=== PATIENT | female | born 1970 | race Caucasian/White ===

== ENCOUNTER 2016-07-10 16:33 | Emergency (ER) | payer BC, OTHER ==
[~2016-07-10] VITALS: Wt 70.0 kg
[~2016-07-10 16:33] MED LIST: AMO500 PO; ATEN-51 PO; CEPH-443 PO; CEPH500C PO; CIPR500T4 PO; DEXL60CA2 PO; FAMO40TA52 PO; MAG355OR15 PO; PHEN-538 PO; PRED20TA PO; SUCR1TAB56 PO
[2016-07-10] MEDS ORDERED: FAMOTIDINE 20 MG TAB PO STA (18:36)
[2016-07-10] MEDS ORDERED: LIDOCAINE/MYLANTA 40 ML BTL PO STA (18:36)
[2016-07-10] MEDS ORDERED: SOD CHLORIDE 0.9% 1,000 ML IV STA (18:36)
[2016-07-10] MEDS ORDERED: ONDANSETRON 4 MG INJ IV STA (18:36)
--- NOTE | 2016-07-10 18:52 | ERD ---
ER Documentation Chief Complaint Date/Time DATE: 07/10/16 TIME: 18:50 Chief Complaint EPIGASTRIC/LOWER ABD PAIN RADIATES TO LEFT LOWER BACK W/ NAUSEA X3DAYS HPI Patient is a 45-year-old female here with who presents to the ED with generalized abdominal pain 1 week. She states in the last 2 days the pain has gotten worse and is primary located on the left side of her abdomen. She complains of nausea with no vomiting. Denies diarrhea. States that her last bowel movement was today. Denies a history of constipation. She does have a history of acid reflux and takes "antiacid" every day. She also states that she has pain in her lower back. Denies headache or dizziness. Denies fever or chills. Denies chest pain, cough, shortness of breath or difficulty breathing. ROS All systems reviewed and are negative except as per history of present illness. Medications Home Meds Active Scripts Famotidine* (Pepcid*) 20 Mg Tablet, 20 MG PO BID for 14 Days, TAB Prov:SUREKHA SCRUGGS PA-C 07/10/16 Ondansetron Hcl* (Zofran*) 4 Mg Tablet, 4 MG PO Q6H for NAUSEA AND/OR VOMITING, #30 TAB Prov:SUREKHA SCRUGGS PA-C 07/10/16 Cephalexin* (Cephalexin*) 500 Mg Capsule, 500 MG PO Q6, #28 CAP Prov:SARAI DIAZ PA-C 06/25/15 Atenolol* (Atenolol*) 25 Mg Tablet, 25 MG PO DAILY, #30 TAB Prov:SARAI DIAZ PA-C 06/25/15 Prednisone* (Prednisone*) 20 Mg Tab, 40 MG PO DAILY for 4 Days, TAB Prov:SARAI DIAZ PA-C 06/25/15 Famotidine* (Famotidine*) 40 Mg Tablet, 40 MG PO BID, #60 TAB Prov:MENG SORIA PA-C 02/10/15 Cephalexin* (Keflex*) 500 Mg Capsule, 500 MG PO BID for 5 Days, CAP Prov:MENG SORIA PA-C 02/10/15 Phenazopyridine Hcl* (Pyridium*) 200 Mg Tab, 200 MG PO TID for DY, #6 TAB Prov:HILARIO PRESLEY NP 10/11/14 Ciprofloxacin Hcl* (Ciprofloxacin Hcl*) 500 Mg Tablet, 500 MG PO BID for 7 Days , TAB Prov:HILARIO PRESLEY FRAMEMAN 10/11/14 Reported Medications Mag Hydrox/Al Hydrox/Simeth (Maalox Ms Liquid) 360 Ml Oral.susp, 30 ML PO Q6 08/05/14 Dexlansoprazole (Dexilant) 60 Mg Azael.mp, 60 MG PO DAILY, CAP 08/05/14 Sucralfate* (Carafate*) 1 Gm Tab, 1 GM PO Q6, TAB 08/05/14 Amoxicillin* (Amoxicillin*) 500 Mg Cap, 500 MG PO Q8, CAP 08/05/14 Allergies Allergies: Coded Allergies: No Known Allergy (Unverified , 06/07/14) PMhx/Soc Medical and Surgical Hx: pt denies Surgical Hx History of Surgery: No Anesthesia Reaction: No Hx Neurological Disorder: No Hx Respiratory Disorders: No Hx Cardiac Disorders: No Hx Psychiatric Problems: No Hx Miscellaneous Medical Probl: Yes (Thyroid, GERD) Hx Alcohol Use: No Hx Substance Use: No Hx Tobacco Use: No Smoking Status: Never smoker FmHx Family History: No coronary disease, No diabetes, No other Physical Exam Vitals Vital Signs Date Time Temp Pulse Resp B/P Pulse Ox O2 Delivery O2 Flow Rate FiO2 07/10/16 16:37 98.8 111 18 134/64 98 Physical Exam GENERAL: Well-developed, well-nourished female. Appears in no acute distress. HEAD: Normocephalic, atraumatic. EYES: Pupils are equally reactive bilaterally. EOMs grossly intact. No conjunctival erythema. ENT: Moist mucous membranes. No uvula deviation. No kissing tonsils. No exudates. NECK: Supple. No lymphadenopathy or thyromegaly. No meningismus. negative kernig. negative brudinski. LUNG: Clear to auscultation bilaterally. No rhonchi, wheezing, rales or coarse breath sounds. HEART: Regular rate and rhythm. No murmurs, rubs or gallops. ABDOMEN: No scars, ecchymosis or rashes noted. Soft, and nondistended. Positive bowel sounds in all four quadrants. No rebound tenderness, no guarding. (-) McBurneys point tenderness. No CVA tenderness. Slight tenderness in the left side of her abdomen. BACK: No midline tenderness. Extremities: Equal pulses bilaterally. No peripheral clubbing, cyanosis or edema. No unilateral leg swelling. NEUROLOGIC: Alert and oriented. Moving all four extremities. 5/5 strength in all extremities. Normal speech. Steady gait. SKIN: Normal color. Warm and dry. No rashes or lesions. Capillary refill < 2 seconds Result Diagram: 07/10/16189907/10/161899 Results 24 hrs Laboratory Tests Test 07/10/16 19:00 White Blood Count 11.310^3/ul Red Blood Count 4.7510^6/ul Hemoglobin 12.9g/dl Hematocrit 40.6% Mean Corpuscular Volume 85.5fl Mean Corpuscular Hemoglobin 27.2pg Mean Corpuscular Hemoglobin Concent 31.8g/dl Red Cell Distribution Width 12.9% Platelet Count 48932^3/UL Mean Platelet Volume 10.7fl Neutrophils % 67.0% Lymphocytes % 21.6% Monocytes % 8.7% Eosinophils % 1.9% Basophils % 0.4% Nucleated Red Blood Cells % 0.0/100WBC Neutrophils # 7.610^3/ul Lymphocytes # 2.510^3/ul Monocytes # 1.010^3/ul Eosinophils # 0.210^3/ul Basophils # 0.110^3/ul Nucleated Red Blood Cells # 0.010^3/ul Urine Color LT. YELLOW Urine Clarity SLIGHTLY CLOUDY Urine pH 5.5 Urine Specific [place] 1.020 Urine Ketones NEGATIVE Urine Nitrite NEGATIVE Urine Bilirubin NEGATIVE Urine Urobilinogen 0.2 E.U./dL Urine Leukocyte Esterase TRACE Urine Microscopic RBC NONE SEEN/HPF Urine Microscopic WBC 0-2/HPF Urine Squamous Epithelial Cells MANY Urine Bacteria FEW Urine Yeast MODERATE Urine Hemoglobin NEGATIVE Urine Glucose NEGATIVE% Urine Total Protein NEGATIVE Sodium Level 137mmol/L Potassium Level 4.0mmol/L Chloride Level 104mmol/L Carbon Dioxide Level 27mmol/L Anion Gap 10 Blood Urea Nitrogen 12mg/dl Creatinine 0.73mg/dl Glucose Level 82mg/dl Calcium Level 9.3mg/dl Total Bilirubin 0.2mg/dl Direct Bilirubin 0.00mg/dl Indirect Bilirubin 0.2mg/dl Aspartate Amino Transf (AST/SGOT) 25IU/L Alanine Aminotransferase (ALT/SGPT) 23IU/L Alkaline Phosphatase 102IU/L Total Protein 7.7g/dl Albumin 4.1g/dl Globulin 3.60g/dl Albumin/Globulin Ratio 1.13 Lipase 152U/L Current Medications Medications (Trade) Dose Ordered Sig/Yuliana Route PRN Reason Start Time Stop Time Status Last Admin Dose Admin Sodium Chloride (NS) 1,000 ml @ 1,000 mls/hr Q1H STAT IV 07/10/16 18:36 07/10/16 19:35 DC 07/10/16 19:07 Ondansetron HCl (Zofran Inj) 4 mg ONCE STAT IV 07/10/16 18:36 07/10/16 18:39 DC 07/10/16 19:06 Famotidine (Pepcid) 20 mg ONCE STAT PO 07/10/16 18:36 07/10/16 18:39 DC 07/10/16 19:06 Miscellaneous Medication (Gi Cocktail (2)) 40 ml ONCE STAT PO 07/10/16 18:36 07/10/16 18:39 DC 07/10/16 19:06 Procedures/MDM ER COURSE: I kept the patient and/or family informed of laboratory and diagnostic imaging results throughout the emergency room course. EKG, MONITORS, & DIAGNOSTIC IMAGING: [place] [id number] Radiology Main Line: [phone] DIAGNOSTIC IMAGING REPORT Patient: EFREM COLEMAN : 1970 Age: 45 Sex: F MR #: [id number] DOS: 07/10/16 1836 Ordering MD: SUREKHA SCRUGGS PA-C Location: [facility] Room/Bed: PROCEDURE: CT abdomen and pelvis without IV contrast. CLINICAL INDICATION: Abdominal pain TECHNIQUE: CT scan of the abdomen and pelvis without contrast was performed on the [employer] volumetric [address] scanner. The patient was scanned without intravenous contrast. Coronal and sagittal reformatted images were obtained from the axial source images. The CTDI vol is 10.03 mGy and the DLP is 551.54 mGy-cm. COMPARISON: 10/10/2014 FINDINGS: CT abdomen: The lung bases are clear. The heart size is not enlarged and is without pericardial thickening or effusion. The liver is normal in size and density and is without focal mass or intrahepatic biliary dilatation. The spleen is normal in size and homogeneous in density. The stomach is grossly unremarkable. The pancreas as visualized is normal. The gallbladder and biliary tree are unremarkable and there is no evidence for common bile duct dilatation. The adrenal glands are symmetric and normal. The kidneys are symmetrically unremarkable as well. No renal calculus or obstructive uropathy or mass lesion is seen. The aorta is of normal in caliber. There is no retroperitoneal lymphadenopathy. The blake hepatis region is clear. The large bowel is stool- filled. The small and large bowel and mesentery, as visualized, are otherwise unremarkable. The normal appendix is identified. CT pelvis: The pelvic organs are normal. The pelvic sidewalls and inguinal regions are clear. No pelvic mass, lymphadenopathy, or free fluid is seen. No acute inflammation is seen. The urinary bladder is within normal limits. The surrounding osseous structures are unremarkable. No osteolytic or osteoblastic lesion is detected. IMPRESSION: 1. No acute pathology in the abdomen and pelvis. 2. Stool filled large bowel. RPTAT: HPNM Physician Mark Date Time Electronically viewed and signed by Physician Mark on 07/10/2016 19 :52 / CC: SUREKHA SCRUGGS PA-C MEDICATIONS: GI cocktail, Zofran, IV fluids. Tolerated well with no adverse reaction. Stated improvement in symptoms. LAB INTERPRETATION: CBC showed no evidence of systemic infection or severe anemia. CMP showed no evidence of electrolyte abnormalities, severe acidosis, alkalosis, renal failure , or liver disease. Lipase showed no evidence of acute pancreatitis. UA showed no evidence of leukocytes, nitrites or hematuria. Urine test was negative. MEDICAL DECISION MAKING: This is a 5-year-old female who presents with abdominal pain 1 week. Vital signs were reviewed. Patient is afebrile. Patient is not hypoxic. Patient is not toxic or ill-appearing. Patient likely has abdominal pain of unknown etiology, patient's CAT scan did show mild constipation. Low suspicion for ACS , AAA, perforated ulcer, bowel obstruction, cholecystitis, choledocholithiasis, cholangitis, pancreatitis, hepatic abscess, appendicitis, diverticulitis, gastroenteritis, hepatitis, peptic ulcer disease, HELLP syndrome. I reexamined patient after administration of fluids and medication, she stated improvement in symptoms. Patient was smiling in the examination room and felt much better and was ready to go home. Her slightly elevated pulse of 111 is likely related to stress reaction. Her pulse decreased to 90 after reexamination and administration of fluids. I have low suspicion for cardiac emergency. Low suspicion for ACS, PE, AAA, dissection, DVT DISCHARGE: At this time, patient is stable for discharge and outpatient management with no new complaints during the ER course. Patient was sent home with [facility] Dc and a copy of her laboratory studies and imaging report. Advised patient to follow-up with her primary care this week.. Patient will be discharged home with instructions to recheck for new or worsening symptoms such as fever, nausea , weakness, LOC and to follow up with primary care in the next 1-2 days. Patient was advised to return to the ER for any new or worsening symptoms. Plan was discussed and patient and/or family understands and agrees. Home instructions were given. SUREKHA SCRUGGS PA-C Jul 10, 2016 18:52
[2016-07-10 19:22] LABS: ADD SCAN DIFF NO
[2016-07-10 19:25] LABS: BASOPHIL # 0.1 10^3/ul (0.0-0.1); BASOPHILS % 0.4 % (0.0-2.0); EOSINOPHILS # 0.2 10^3/ul (0.0-0.5); EOSINOPHILS % 1.9 % (0.0-7.0); HEMATOCRIT 40.6 % (37.0-47.0); HEMOGLOBIN 12.9 g/dl (12.0-16.0); LYMPHOCYTES # 2.5 10^3/ul (0.8-2.9); LYMPHOCYTES % 21.6 % (15.0-51.0); MEAN CORPUSCULAR HEMOGLOBIN 27.2 pg (29.0-33.0); MEAN CORPUSCULAR HGB CONC 31.8 g/dl (32.0-37.0); MEAN CORPUSCULAR VOLUME 85.5 fl (82.0-101.0); MEAN PLATELET VOLUME 10.7 fl (7.4-10.4); MONOCYTES % 8.7 % (0.0-11.0); NEUTROPHIL # 7.6 10^3/ul (1.6-7.5); PLATELET COUNT 307 10^3/UL (140-415); RED BLOOD COUNT 4.75 10^6/ul (4.20-5.40); RED CELL DISTRIBUTION WIDTH 12.9 % (11.5-14.5); WHITE BLOOD COUNT 11.3 10^3/ul (4.8-10.8)
[2016-07-10 19:29] LABS: ADD UMIC YES; URINE BILIRUBIN (Dip) NEGATIVE (NEGATIVE); URINE BLOOD (Dip) NEGATIVE (NEGATIVE); URINE COLOR LT. YELLOW (YELLOW); URINE GLUCOSE (Dip) NEGATIVE (NEGATIVE); URINE KETONES (Dip) NEGATIVE (NEGATIVE); URINE LEUKOCYTE ESTERASE (Dip) TRACE (NEGATIVE); URINE NITRITE (Dip) NEGATIVE (NEGATIVE); URINE TOTAL PROTEIN (Dip) NEGATIVE (NEGATIVE); URINE UROBILINOGEN (Dip) 0.2 E.U./dL (0.1-1.0)
[2016-07-10 19:46] LABS: URINE RBCS NONE SEEN /HPF (0)
[2016-07-10 19:47] LABS: BACTERIA,URINE FEW; SQUAMOUS EPITHELIAL CELL,UR MANY
--- NOTE | 2016-07-10 19:52 | RADRPT ---
PROCEDURE: CT abdomen and pelvis without IV contrast. CLINICAL INDICATION: Abdominal pain TECHNIQUE: CT scan of the abdomen and pelvis without contrast was performed on the [employer] volumetric [address] scanner. The patient was scanned without intravenous contrast. Coronal and sagittal refo rmatted images were obtained from the axial source images. The CTDI vol is 10.03 mGy and the DLP is 551.54 mGy-cm. COMPARISON: 10/10/2014 FINDINGS: CT abdomen: The lung bases are clear. The heart size is not enlarged and is without pericardial thickening or e ffusion. The liver is normal in size and density and is without focal mass or intrahepatic biliary dilatation . The spleen is normal in size and homogeneous in density. The stomach is grossly unremarkable. T he pancreas as visualized is normal. The gallbladder and biliary tree are unremarkable and there is no evidence for common bile duct dilatation. The adrenal glands are symmetric and normal. The kid neys are symmetrically unremarkable as well. No renal calculus or obstructive uropathy or mass lesi on is seen. The aorta is of normal in caliber. There is no retroperitoneal lymphadenopathy. The blake hepatis region is clear. The large bowel is stool-filled. The small and large bowel and mesentery, as visua lized, are otherwise unremarkable. The normal appendix is identified. CT pelvis: The pelvic organs are normal. The pelvic sidewalls and inguinal regions are clear. No pelvic mass, lymphadenopathy, or free fluid is seen. No acute inflammation is seen. The urinary bladder is wit hin normal limits. The surrounding osseous structures are unremarkable. No osteolytic or osteoblastic lesion is detect ed. IMPRESSION: 1. No acute pathology in the abdomen and pelvis. 2. Stool filled large bowel. RPTAT: HPNM Physician Mark Date Time Electronically viewed and signed by Physician Mark on 07/10/2016 19:52 /
[2016-07-10 20:06] LABS: ALBUMIN 4.1 g/dl (3.3-4.9); ALBUMIN/GLOBULIN RATIO 1.13; BILIRUBIN,INDIRECT 0.2 mg/dl (0-1.1); BILIRUBIN,TOTAL 0.2 mg/dl (0.2-1.3); CALCIUM 9.3 mg/dl (8.4-10.2); CREATININE 0.73 mg/dl (0.44-1.00); TOTAL PROTEIN 7.7 g/dl (6.1-8.1)
[2016-07-10] MEDS ORDERED: ONDA4TAB8 PO (20:26)
[2016-07-10] MEDS ORDERED: FAMO-18 PO (20:27)
[2016-07-10 20:35] VITALS: BP 128/68; PULSE 89; RESP 16; TEMP 98.6
== END 2016-07-10 20:37 | disposition home or self-care (01) ==
LOC: FTE 16:33
DX: R10.13 Epigastric pain (principal)
CPT/HCPCS: 36415; 74176; 80053; 81001; 83690; 85025; 96374; J2405; J7030; Z7502; Z7610; 81003

== ENCOUNTER 2017-04-17 14:48 | Emergency (ER) | END 2017-04-17 16:00 | disposition home or self-care (01) ==

== ENCOUNTER 2017-09-11 11:36 | Emergency (ER) | END 2017-09-11 14:27 | disposition home or self-care (01) ==

== ENCOUNTER 2018-10-19 23:37 | Emergency (ER) | payer OTHER ==
[~2018-10-19] VITALS: Ht 152.4 cm; Wt 69.3 kg
[~2018-10-19 23:37] MED LIST changes: +ACET325T33 PO; +ACET500C5 PO; +ALBU18HF INHALATION; +ALBU8.5H8 INH; -AMO500 PO; +AMOX500C2 PO; +AZIT250T PO; +BENZ-6 PO; +FAMO-96 PO; +FAMO40TA5 PO; -FAMO40TA52 PO; +IBUP-1561 PO; +IBUP800T48 PO; +LEVO750T25 PO; +LORA10CA PO; +NAPR-985 PO; +ONDA4TAB8 PO; +OSEL75CA23 PO
[2018-10-19 23:42] VITALS: Ht 152.4 cm; Wt 69.3 kg
--- NOTE | 2018-10-20 02:27 | ERD ---
ER Documentation Chief Complaint Chief Complaint C/O GENERALIZED CP RADIATING TO BACK AND SOB SINCE YESTERDAY HPI This is a 48-year-old female coming with his generalized chest pain radiating to her back with cough and shortness of breath. She said the pain is pressure-like and reproducible to the touch. The pain in the back only hours which takes deep breath. Denies fevers or chills. Denies any other current complaints. ROS All systems reviewed and are negative except as per history of present illness. Medications Home Meds Active Scripts Naproxen* (Naprosyn*) 500 Mg Tablet, 500 MG PO BID PRN for PAIN AND/OR INFLAMMATION, #30 TAB Prov:SIDRA COOPER S. 10/20/18 Albuterol Sulfate* (Ventolin HFA*) 18 Gm Hfa.aer.ad, 2 PUFF INHALATION Q4H, #1 I NHALER Prov:SIDRA COOPER. 10/20/18 Azithromycin* (Zithromax*) 250 Mg Tablet, 250 MG PO .RocíoPACK DIRECTED, #6 TAB TAKE 500 MG (2 TABS) THE FIRST DAY THEN 250 MG (1 TAB) DAYS 2-5 Prov:SIDRA COOPER. 10/20/18 Acetaminophen* (Tylenol*) 325 Mg Tablet, 1 TAB PO Q6 PRN for PAIN AND OR ELEVATED TEMP, #30 TAB Prov:REE MIR PA-C 09/11/17 Ibuprofen* (Motrin*) 400 Mg Tab, 200 MG PO Q6, #30 TAB Prov:REE MIR PA-C 09/11/17 Levofloxacin* (Levaquin*) 750 Mg Tablet, 750 MG PO DAILY for 5 Days, TAB Prov:PASILADARIO BARBAAR F 04/17/17 Loratadine* (Claritin*) 10 Mg Capsule, 10 MG PO DAILY, #20 CAP Prov:PASILABANDARIOAR F 04/17/17 Ibuprofen* (Motrin*) 800 Mg Tab, 800 MG PO Q6H PRN for PAIN AND OR ELEVATED TEMP, #15 TAB Prov:PASILADARIO BARBAAR F 04/17/17 Acetaminophen* (Tylophen*) 500 Mg Capsule, 1 CAP PO Q6H PRN for PAIN AND OR ELEVATED TEMP, #20 CAP Prov:PASILABAN,KLAR F 04/17/17 Benzonatate* (Tessalon Perle*) 100 Mg Capsule, 100 MG PO Q8H PRN for COUGH, #20 CAP Prov:RAFITA HATCH 04/17/17 Prednisone* (Prednisone*) 20 Mg Tab, 40 MG PO DAILY for 5 Days, TAB Prov:RAFITA HATCH 04/17/17 Albuterol Sulfate* (Proair HFA*) 8.5 Gm Hfa.aer.ad, 2 PUFF INH Q4, #1 INHALER Prov:RAFITA HATCH 04/17/17 Oseltamivir Phosphate* (Tamiflu*) 75 Mg Capsule, 75 MG PO BID for 5 Days, CAP Prov:RAFITA HATCH 04/17/17 Famotidine* (Pepcid*) 20 Mg Tablet, 20 MG PO BID for 14 Days, TAB Prov:SUREKHA SCRUGGS PA-C 07/10/16 Ondansetron Hcl* (Zofran*) 4 Mg Tablet, 4 MG PO Q6H for NAUSEA AND/OR VOMITING, #30 TAB Prov:SUREKHA SCRUGGS PA-C 07/10/16 Cephalexin* (Cephalexin*) 500 Mg Capsule, 500 MG PO Q6, #28 CAP Prov:SARAI DIAZ PA-C 06/25/15 Atenolol* (Atenolol*) 25 Mg Tablet, 25 MG PO DAILY, #30 TAB Prov:SARAI DIAZ PA-C 06/25/15 Prednisone* (Prednisone*) 20 Mg Tab, 40 MG PO DAILY for 4 Days, TAB Prov:SARAI DIAZ PA-C 06/25/15 Famotidine* (Famotidine*) 40 Mg Tablet, 40 MG PO BID, #60 TAB Prov:MENG SORIA PA-C 02/10/15 Cephalexin* (Keflex*) 500 Mg Capsule, 500 MG PO BID for 5 Days, CAP Prov:MENG SORIA PA-C 02/10/15 Phenazopyridine Hcl* (Pyridium*) 200 Mg Tab, 200 MG PO TID for DY, #6 TAB Prov:HILARIO PRESLEY NP 10/11/14 Ciprofloxacin Hcl* (Ciprofloxacin Hcl*) 500 Mg Tablet, 500 MG PO BID for 7 Days, TAB Prov:HILARIO PRESLEYAdria RN NEUROLOGY 10/11/14 Reported Medications Mag Hydrox/Al Hydrox/Simeth (Maalox Ms Liquid) 360 Ml Oral.susp, 30 ML PO Q6 08/05/14 Dexlansoprazole (Dexilant) 60 Mg Azael., 60 MG PO DAILY, CAP 08/05/14 Sucralfate* (Carafate*) 1 Gm Tab, 1 GM PO Q6, TAB 08/05/14 Amoxicillin* (Amoxicillin*) 500 Mg Cap, 500 MG PO Q8, CAP 08/05/14 Allergies Allergies: Coded Allergies: No Known Allergy (Unverified , 09/11/17) PMhx/Soc Medical and Surgical Hx: pt denies Surgical Hx History of Surgery: No Anesthesia Reaction: No Hx Neurological Disorder: No Hx Respiratory Disorders: No Hx Cardiac Disorders: No Hx Psychiatric Problems: No Hx Miscellaneous Medical Probl: Yes (Thyroid, GERD) Hx Alcohol Use: No Hx Substance Use: No Hx Tobacco Use: No Smoking Status: Never smoker Physical Exam Vitals Vital Signs Date Temp Pulse Resp B/P (MAP) Pulse Ox O2 O2 Flow FiO2 Time Delivery Rate 10/20/18 Nasal 01:42 Cannula 10/20/18 98.1 74 21 119/81 99 Room Air 01:42 (94) 10/19/18 98.1 96 21 156/79 99 23:42 (104) Physical Exam Const: No acute distress Head: Atraumatic Eyes: Normal Conjunctiva ENT: Normal External Ears, Nose and Mouth. Neck: Full range of motion. No meningismus. Resp: Clear to auscultation bilaterally Cardio: Regular rate and rhythm, no murmurs Abd: Soft, non tender, non distended. Normal bowel sounds Skin: No petechiae or rashes Back: No midline or flank tenderness Ext: No cyanosis, or edema Neur: Awake and alert Psych: Normal Mood and Affect Result Diagram: 10/20/185 10/20/185 Results 24 hrs Laboratory Tests Test 10/20/18 00:55 White Blood Count 9.0 10^3/ul Red Blood Count 5.01 10^6/ul Hemoglobin 13.3 g/dl Hematocrit 41.8 % Mean Corpuscular Volume 83.4 fl Mean Corpuscular Hemoglobin 26.5 pg Mean Corpuscular Hemoglobin Concent 31.8 g/dl Red Cell Distribution Width 13.9 % Platelet Count 285 10^3/UL Mean Platelet Volume 10.7 fl Immature Granulocytes % 0.300 % Neutrophils % 61.7 % Lymphocytes % 26.4 % Monocytes % 7.2 % Eosinophils % 3.7 % Basophils % 0.7 % Nucleated Red Blood Cells % 0.0 /100WBC Immature Granulocytes # 0.030 10^3/ul Neutrophils # 5.5 10^3/ul Lymphocytes # 2.4 10^3/ul Monocytes # 0.7 10^3/ul Eosinophils # 0.3 10^3/ul Basophils # 0.1 10^3/ul Nucleated Red Blood Cells # 0.0 10^3/ul Sodium Level 142 mmol/L Potassium Level 3.7 mmol/L Chloride Level 104 mmol/L Carbon Dioxide Level 27 mmol/L Anion Gap 11 Blood Urea Nitrogen 15 mg/dl Creatinine 0.90 mg/dl Est Glomerular Filtrat Rate mL/min > 60 mL/min Glucose Level 104 mg/dl Calcium Level 10.0 mg/dl Total Bilirubin 0.6 mg/dl Direct Bilirubin 0.00 mg/dl Indirect Bilirubin 0.6 mg/dl Aspartate Amino Transf (AST/SGOT) 24 IU/L Alanine Aminotransferase (ALT/SGPT) 24 IU/L Alkaline Phosphatase 116 IU/L Troponin I < 0.012 ng/ml B-Type Natriuretic Peptide 43 PG/ML Total Protein 8.3 g/dl Albumin 4.6 g/dl Globulin 3.70 g/dl Albumin/Globulin Ratio 1.24 Procedures/MDM EKG: Rate/Rhythm: [Normal Sinus Rhythm] QRS, ST, T-waves: [No changes consistent w/ acute ischemia] Impression: [No evidence of ischemia or arrhythmia] Chest X-ray 1V Interpreted by me: Soft Tissue: No acute abnormalities Bones: No acute abnormalities Mediastinum/Cardiac Silhouette/Lungs: [No acute abnormalities] Medical decision making: Patient's thoracic symptoms have stabilized while in the department and are stable for outpatient follow up. Exam and work up not consistent w/ ischemia, arrhythmia, PE or dissection. Patient's respiratory status has stabilized while in the department and is appropriate for outpatient work up. Exam and work up not consistent w/ impending respiratory failure or cardiovascular collapse. Departure Diagnosis: Primary Impression: Multiple complaints Condition: Stable Patient Instructions: Bronchitis, Antiobiotic Treatment (Adult) SIDRA COOPER Oct 20, 2018 02:27
[2018-10-20 02:29] VITALS: BP 131/75; PULSE 81; RESP 18
== END 2018-10-20 02:30 | disposition home or self-care (01) ==
LOC: E/R 23:37
DX: R07.9 Chest pain, unspecified (principal); R06.02 Shortness of breath
CPT/HCPCS: 36415; 71045; 80053; 83880; 84484; 85025; 93005; Z7502